=== PATIENT | female | born 1940 | race Caucasian/White ===

== ENCOUNTER 2019-08-26 11:50 | Day surgery (SDC) | payer OTHER, BC ==
--- OUTSIDE RECORDS SUMMARY | 2019-08-26 11:55 | XMS REPORT ---
:1940 Author Organization eClinicalWorks Care Team Providers Name Role Phone Álvaro Velazquez Provider Role Unavailable Allergies, Adverse Reactions, Alerts Substance Reaction Event Type N.K.D.A. Info Not Available Non Drug Allergy Problems Problem Type Condition Code Onset Dates Condition Status Assessment Pain of right hip joint M25.551 Active Assessment Pain of left hip joint M25.552 Active Assessment Trochanteric bursitis of left hip M70.62 Active Assessment Trochanteric bursitis of right hip M70.61 Active Medications Medication Code System Code Instructions Start Date End Date Status Dosage Losartan [facility] 03371-024 Active not defined Potassium 5-22 Gabapentin [facility] [address]6530-920 Active not defined 0-01 Results No Known Results Summary Purpose eClinicalWorks Submission
--- OUTSIDE RECORDS SUMMARY | 2019-08-26 11:55 | XMS REPORT ---
[...] right hip M70.61 Active Medications Medication Code Code Instructions Start End Status Dosage System Date Date Gabapentin [facility] [address]-91 Active not defined Losartan [facility] [address]-57 Active not Potassium defined Mobic [facility] [id number] 7.5 MG Orally Apr 13, May 13, Active 1 tablet Once a day 2018 2018 Results No Known Results Summary Purpose eClinicalWorks Submission
--- OUTSIDE RECORDS SUMMARY | 2019-08-26 11:56 | XMS REPORT ---
:1940 Author Organization eClinicalWorks Care Team Providers Name Role Phone Álvaro Velazquez Provider Role Unavailable Allergies No Known Allergies Problems No Known Problems Medications No Known Medications Results No Known Results Summary Purpose eClinicalWorks Submission
[2019-08-26 12:41] VITALS: BP 148/56; TEMP 97.3; O2SAT 98
[2019-08-26 12:42] VITALS: BMI 28.1
[2019-08-26] MEDS ORDERED: Zoledronic Acid/Mannitol/Water 5 MG/100 ML INFUS.BOT IV NR (13:00)
== END 2019-08-26 13:00 | disposition home or self-care (01) ==
LOC: DS 11:50
PROVIDERS: ATTEND Internal Medicine
DX: M81.0 Age-related osteoporosis without current pathological fracture (principal); R13.10 Dysphagia, unspecified
CPT/HCPCS: 96365; J3489

== ENCOUNTER 2020-07-03 11:57 | Emergency (ER) | payer OTHER, BC ==
--- OUTSIDE RECORDS SUMMARY | 2020-07-03 11:59 | XMS REPORT | Continuity of Care Document ---
:1940 Author Organization [facility] t Address [address] [place] [address] Care Team Providers Name Role Phone Unavailable Unavailable Unavailable Problems This patient has no known problems. Allergies, Adverse Reactions, Alerts This patient has no known allergies or adverse reactions. Medications Ordered Filled Start Stop Current Ordering Indication Dosage Frequency Signature Comments Components Source Medication Medication Date Date Medication? Clinician (SIG) Name Name Gabapentin Gabapentin Yes Álvaro not [facility] Velazquez defined [facility] Losartan Losartan Yes Álvaro not [facility] Potassium Potassium Velazquez defined Cecelia kes - [facility] Procedures This patient has no known procedures. Encounters Start End Encounter Admission Attending Care Care Encounter Source Date/Time Date/Time Type Type Clinicians Facility Department ID 2019-06-11 2019-06-11 [facility] [id number] [facility] 13:16:00 13:16:00 [facility] 2019-06-09 2019-06-09 [facility] [id number] [facility] 16:59:00 16:59:00 [facility] 2019-06-08 2019-06-08 [facility] [id number] [facility] 14:30:00 14:30:00 [facility] 2019-04-27 2019-04-27 [facility] [id number] [facility] 14:00:00 14:00:00 [facility] 2019-04-13 2019-04-13 [facility] [id number] [facility] 14:30:00 14:30:00 [facility] Results This patient has no known results.
[2020-07-03] MEDS ORDERED: NA CHLORIDE 0.9% 500 ML ONE (13:29)
[2020-07-03] MEDS ORDERED: FLEET ENEMA ADULT PR ONE (13:29)
[2020-07-03 13:53] LABS: ALT/SGPT 31 U/L (12-78); AST/SGOT 22 U/L (15-37); Albumin 3.7 g/dL (3.4-5.0); Alkaline Phosphatase 100 U/L (45-117); BUN Blood Urea Nitrogen 18 mg/dL (7-18); Bicarbonate 31 mmol/L (21-32); Bilirubin Direct < 0.1 mg/dL (0-0.2); Bilirubin Total 0.5 mg/dL (0.2-1.0); Glucose Level 129 mg/dL (74-106); Lipase 129 U/L (73-393); Potassium 3.8 mmol/L (3.5-5.1); Protein, Total 6.6 g/dL (6.4-8.2); Sodium Level 139 mmol/L (136-145)
[2020-07-03 14:01] LABS: Absolute Lymphocytes (CBC) 1.4 K/uL (0.7-4.9); Basophils % 0.8 % (0-1.3); Hematocrit 37.8 % (36.0-45.0); Lymphocytes % 24.9 % (15.3-44.8); MPV 7.9 fL (7.6-11.3); RBC Red Blood Cell Count 4.34 M/uL (3.86-4.86)
--- NOTE | 2020-07-03 15:52 | RAD REPORT ---
EXAM DESCRIPTION: CT - Abdomen Pelvis W Contrast - 07/03/2020 3:18 pm CLINICAL HISTORY: CONSTIPATION COMPARISON: <Comparisons> TECHNIQUE: Biphasic, helical CT imaging of the abdomen and pelvis was performed following 100 ml non -ionic IV contrast. No oral contrast given. All CT scans are performed using dose optimization technique as appropriate and may include automated exposure control or mA/KV adjustment according to patient size. FINDINGS: No suspicious findings in the lung bases. The liver, spleen, and pancreas show no suspicious findings. Numerous surgical clips are present in t he gallbladder fossa. No abnormal biliary tree dilatation. Symmetric renal function is seen with no hydronephrosis or suspicious renal mass. No pyelonephritis o r acute parenchymal process. No bladder abnormalities. No adrenal abnormalities. No dilated bowel loops or bowel wall thickening. Diverticulosis is present without diverticulitis. No findings for appendicitis. Fatty ileocecal valve is present. No free air, free fluid or inflammatory stranding. No hernia, mass or bulky lymphadenopathy. Patient has a small hiatal hernia. No suspicious bony findings. IMPRESSION: Contrast enhanced CT abdomen and pelvis showing no acute or emergent finding. Nonacute findings detailed in body of the report.
--- NOTE | 2020-07-03 15:58 | EDPHYS ---
Physician Documentation [facility] Name: Francisca Engle Age: 80 yrs Sex: Female : 1940 Arrival Date: 07/03/2020 Time: 12:01 Bed 20 Private MD: ED Physician Jeff Garrido HPI: 07/03 13:41 This 80 yrs old Female presents to ER via Ambulatory with complaints of rn Vomiting, constipation. 13:41 The patient presents to the emergency department with nausea, vomiting. Onset: The rn symptoms/episode began/occurred at an unknown time. Possible causes: unknown. The symptoms are aggravated by nothing. The symptoms are alleviated by nothing. Associated signs and symptoms: Pertinent positives: constipation, nausea, vomiting, Pertinent negatives: abdominal pain, fever, GI bleeding. Severity of symptoms: At their worst the symptoms were mild in the emergency department the symptoms are unchanged. The patient has not experienced similar symptoms in the past. The patient has not recently seen a physician. Reports chronic constipation, usually has to take laxative or enema, reports enema helped but noticed nausea and vomiting when trying to use bathroom. No fever. No abd pain. . Historical: - Allergies: 12:40 No Known Allergies; iw - Home Meds: 12:40 amlodipine 10 mg tab 1 tab once daily [Active]; losartan-hydrochlorothiazide 100-25 mg iw oral tab 1 tab once daily [Active]; ezetimibe oral oral once daily [Active]; omeprazole 20 mg Oral cpDR 1 cap once daily [Active]; - PMHx: 12:40 Hypertension; Hyperlipidemia; iw - PSHx: 12:40 Cholecystectomy; Knee surgery; iw 12:41 Hysterectomy; iw - Immunization history:: Adult Immunizations up to date. - Social history:: Smoking status: . - Family history:: not pertinent. - Hospitalizations: : No recent hospitalization is reported. ROS: 13:41 Constitutional: Negative for fever, chills, and weight loss, Eyes: Negative for injury, rn pain, redness, and discharge, Cardiovascular: Negative for chest pain, palpitations, and edema, Respiratory: Negative for shortness of breath, cough, wheezing, and pleuritic chest pain, Abdomen/GI: Negative for abdominal pain, diarrhea Back: Negative for injury and pain, : Negative for injury, bleeding, discharge, and swelling, MS/Extremity: Negative for injury and deformity, Skin: Negative for injury, rash, and discoloration, Neuro: Negative for headache, weakness, numbness, tingling, and seizure. Exam: 13:41 Constitutional: This is a well developed, well nourished patient who is awake, alert, rn and in no acute distress. Head/Face: Normocephalic, atraumatic. Cardiovascular: Regular rate and rhythm. No pulse deficits. Respiratory: No increased work of breathing, no retractions or nasal flaring. Abdomen/GI: Soft, non-tender Skin: Warm, dry MS/ Extremity: Pulses equal, no cyanosis. Neuro: Awake and alert, GCS 15 Vital Signs: 12:36 BP 141 / 65; Pulse 72; Resp 16; Temp 98.6; Pulse Ox 100% ; Weight 68.04 kg; Height 5 iw ft. 5 in. (165.10 cm); Pain 4/10; 13:51 BP 148 / 62; Pulse 77; Resp 18 S; Pulse Ox 100% on R/A; ca1 14:45 BP 126 / 52; Pulse 62; Resp 18 S; Pulse Ox 99% on R/A; ca1 15:45 BP 134 / 57; Pulse 65; Resp 18 S; Pulse Ox 100% on R/A; ca1 12:36 Body Mass Index 24.96 (68.04 kg, 165.10 cm) iw MDM: 12:58 Patient medically screened. rn 15:57 Differential diagnosis: Nonspecific abd pain, viral gastroenteritis, gastroenteritis, rn constipation, obstruction, impaction. Data reviewed: vital signs, nurses notes, lab test result(s), radiologic studies, CT scan, and as a result, I will discharge patient. Counseling: I had a detailed discussion with the patient and/or guardian regarding: the historical points, exam findings, and any diagnostic results supporting the discharge/admit diagnosis, lab results, radiology results, the need for outpatient follow up, to return to the emergency department if symptoms worsen or persist or if there are any questions or concerns that arise at home. Response to treatment: the patient's symptoms have markedly improved after treatment, and as a result, I will discharge patient. Special discussion: I discussed with the patient/guardian in detail that at this point there is no indication for admission to the hospital. It is understood, however, that if the symptoms persist or worsen the patient needs to return immediately for re-evaluation. 07/03 13:07 Order name: Basic Metabolic Panel; Complete Time: 14:19 rn 07/03 13:07 Order name: CBC with Diff; Complete Time: 14:19 rn 07/03 13:07 Order name: Hepatic Function; Complete Time: 14:19 rn 07/03 13:07 Order name: Lipase; Complete Time: 14:19 rn 07/03 13:07 Order name: CT Abd/Pelvis - PO and IV Contrast; Complete Time: 15:57 rn 07/03 13:07 Order name: IV Saline Lock; Complete Time: 13:25 rn 07/03 13:07 Order name: Labs collected and sent; Complete Time: 13:25 rn Administered Medications: 13:28 Drug: NS 0.9% 500 ml Route: IV; Rate: bolus; Site: right antecubital; ca1 14:10 Follow up: Response: No adverse reaction; IV Status: Completed infusion; IV Intake: ca1 500ml 13:35 Drug: Fleet Enema 133 ml Route: LA; ca1 15:00 Follow up: Response: No adverse reaction; Marked relief of symptoms ca1 Disposition: 07/03/20 15:58 Discharged to Home. Impression: Constipation, unspecified. - Condition is Stable. - Discharge Instructions: Constipation, Adult. - Medication Reconciliation Form, Thank You Letter, Antibiotic Education, Prescription Opioid Use form. - Follow up: Private Physician; When: As needed; Reason: Recheck today's complaints, Re-evaluation by your physician. - Problem is an ongoing problem. - Symptoms have improved. Signatures: Dispatcher [employer] Shatne Garvin RN RN iw Jeff Garrido MD MD rn Acob, CARO Pineda RN ca1 Corrections: (The following items were deleted from the chart) 16:19 15:58 07/03/2020 15:58 Discharged to Home. Impression: Constipation, unspecified. ca1 Condition is Stable. Forms are Medication Reconciliation Form, Thank You Letter, Antibiotic Education, Prescription Opioid Use. Follow up: Private Physician; When: As needed; Reason: Recheck today's complaints, Re-evaluation by your physician. Problem is an ongoing problem. Symptoms have improved. rn
--- NOTE | 2020-07-03 15:58 | ER ---
Nurse's Notes [facility] Name: Francisca nEgle Age: 80 yrs Sex: Female : 1940 Arrival Date: 07/03/2020 Time: 12:01 Bed 20 Private MD: Diagnosis: Constipation, unspecified Presentation: 07/03 12:36 Chief complaint: Patient states: thinks she has a bowel blockage, last BM was yesterday iw but was only a small amount and has been vomiting intermittently for 3-4 months , last episode of vomiting was a week ago, has been using suppositories and enemas, and has pain in RLQ around to her back. Coronavirus screen: At this time, the client does not indicate any symptoms associated with coronavirus-19. Ebola Screen: Patient negative for fever greater than or equal to 101.5 degrees Fahrenheit, and additional compatible Ebola Virus Disease symptoms Patient denies exposure to infectious person. Patient denies travel to an Ebola-affected area in the 21 days before illness onset. No symptoms or risks identified at this time. Initial Sepsis Screen: Does the patient meet any 2 criteria? No. Patient's initial sepsis screen is negative. Does the patient have a suspected source of infection? No. Patient's initial sepsis screen is negative. Risk Assessment: Do you want to hurt yourself or someone else? Patient reports no desire to harm self or others. Onset of symptoms was April 2020. 12:36 Method Of Arrival: Ambulatory iw 12:36 Acuity: ISABELLA 3 iw Historical: - Allergies: 12:40 No Known Allergies; iw - Home Meds: 12:40 amlodipine 10 mg tab 1 tab once daily [Active]; losartan-hydrochlorothiazide 100-25 mg iw oral tab 1 tab once daily [Active]; ezetimibe oral oral once daily [Active]; omeprazole 20 mg Oral cpDR 1 cap once daily [Active]; - PMHx: 12:40 Hypertension; Hyperlipidemia; iw - PSHx: 12:40 Cholecystectomy; Knee surgery; iw 12:41 Hysterectomy; iw - Immunization history:: Adult Immunizations up to date. - Social history:: Smoking status: . - Family history:: not pertinent. - Hospitalizations: : No recent hospitalization is reported. Screenin:45 Abuse screen: Denies threats or abuse. Denies injuries from another. Nutritional ca1 screening: No deficits noted. Tuberculosis screening: No symptoms or risk factors identified. Fall Risk IV access (20 points). Assessment: 12:45 General: Appears in no apparent distress. comfortable, Behavior is calm, cooperative, ca1 appropriate for age. Pain: Complains of pain in right mid back and right low back Pain does not radiate. Pain currently is 4 out of 10 on a pain scale. Neuro: Level of Consciousness is awake, alert, obeys commands, Oriented to person, place, time, situation. Cardiovascular: Heart tones S1 S2 present Capillary refill < 3 seconds Patient's skin is warm and dry. Respiratory: Airway is patent Respiratory effort is even, unlabored, Respiratory pattern is regular, symmetrical, Breath sounds are clear bilaterally. GI: Abdomen is round non-distended, Bowel sounds present X 4 quads. Abd is soft and non tender X 4 quads. Reports constipation, nausea, vomiting. : Urine is clear. : Denies burning with urination, urinary frequency, urgency. EENT: No signs and/or symptoms were reported regarding the EENT system. Derm: Skin is intact, is healthy with good turgor, Skin is pink, warm \\T\\ dry. Musculoskeletal: Circulation, motion, and sensation intact. Capillary refill < 3 seconds. 13:51 Reassessment: Patient appears in no apparent distress at this time. Patient and/or ca1 family updated on plan of care and expected duration. Pain level reassessed. Patient is alert, oriented x 3, equal unlabored respirations, skin warm/dry/pink. Went to the restroom after fleet enema. States, "I had some BM but I threw up a lot". When asked if she wants nausea medication, she stated, "I don't think I need it now, I just throw up when I have to do a BM". 14:45 Reassessment: Patient appears in no apparent distress at this time. Patient and/or ca1 family updated on plan of care and expected duration. Pain level reassessed. Patient is alert, oriented x 3, equal unlabored respirations, skin warm/dry/pink. 15:45 Reassessment: Patient appears in no apparent distress at this time. Patient and/or ca1 family updated on plan of care and expected duration. Pain level reassessed. Patient is alert, oriented x 3, equal unlabored respirations, skin warm/dry/pink. 16:18 Reassessment: Patient appears in no apparent distress at this time. Patient is alert, ca1 oriented x 3, equal unlabored respirations, skin warm/dry/pink. Vital Signs: 12:36 BP 141 / 65; Pulse 72; Resp 16; Temp 98.6; Pulse Ox 100% ; Weight 68.04 kg; Height 5 iw ft. 5 in. (165.10 cm); Pain 4/10; 13:51 BP 148 / 62; Pulse 77; Resp 18 S; Pulse Ox 100% on R/A; ca1 14:45 BP 126 / 52; Pulse 62; Resp 18 S; Pulse Ox 99% on R/A; ca1 15:45 BP 134 / 57; Pulse 65; Resp 18 S; Pulse Ox 100% on R/A; ca1 12:36 Body Mass Index 24.96 (68.04 kg, 165.10 cm) iw ED Course: 12:01 Patient arrived in ED. bg2 12:38 Triage completed. iw 12:39 Arm band placed on. iw 12:42 Alyssa Fonseca, RN is Primary Nurse. rb3 12:43 Miriam Gipson, RN is Primary Nurse. ca1 12:45 Patient has correct armband on for positive identification. Placed in gown. Bed in low ca1 position. Call light in reach. Side rails up X2. Pulse ox on. NIBP on. Warm blanket given. 12:58 Jeff Garrido MD is Attending Physician. rn 13:25 Initial lab(s) drawn, by nd, sent to lab. Inserted saline lock: 20 gauge in right ca1 antecubital area, using aseptic technique. Blood collected. 15:19 CT Abd/Pelvis - PO and IV Contrast In Process Unspecified. EDMS 16:19 No provider procedures requiring assistance completed. IV discontinued, intact, ca1 bleeding controlled, No redness/swelling at site. Pressure dressing applied. Administered Medications: 13:28 Drug: NS 0.9% 500 ml Route: IV; Rate: bolus; Site: right antecubital; ca1 14:10 Follow up: Response: No adverse reaction; IV Status: Completed infusion; IV Intake: ca1 500ml 13:35 Drug: Fleet Enema 133 ml Route: MD; ca1 15:00 Follow up: Response: No adverse reaction; Marked relief of symptoms ca1 Intake: 14:10 IV: 500ml; Total: 500ml. ca1 Outcome: 15:58 Discharge ordered by . rn 16:19 Discharged to home ambulatory, with significant other. ca1 16:19 Condition: stable 16:19 Discharge instructions given to patient, Instructed on discharge instructions, follow up and referral plans. Demonstrated understanding of instructions, follow-up care. 16:19 Patient left the ED. ca1 Signatures: Dispatcher [employer] EDMS Shante Macias RN RN iw Jeff Garrido MD MD rn Glass, Brittany bg2 Miriam Gipson RN RN ca1 Alyssa Fonseca RN RN rb3 Corrections: (The following items were deleted from the chart) 12:53 12:45 GI: Abdomen is round non-distended, Bowel sounds present X 4 quads. Abd is soft ca1 and non tender X 4 quads. ca1 14:46 14:45 BP 126 / 52; Pulse 59bpm; Resp 18bpm; Spontaneous; Pulse Ox 99% RA; ca1 ca1
[2020-07-03 20:45] VITALS: TEMP 98.6
[2020-07-03 20:56] VITALS: BP 134/57; O2SAT 100
== END 2020-07-03 16:19 | disposition home or self-care (01) ==
LOC: ER 11:57
DX: K59.00 Constipation, unspecified (principal); I10 Essential (primary) hypertension; E78.5 Hyperlipidemia, unspecified
CPT/HCPCS: 85025; 80048; 36415; 80076; 83690; 74177; 96360; 99284; Q9967; J7040